=== PATIENT | female | born 1995 | race Two or more races ===

== ENCOUNTER 2024-11-30 12:54 | Outpatient (AMB) | payer MEDICAID, SELFPAY ==
[2024-11-30 13:19] VITALS: BP 132/88; PULSE 98; RESP 17; TEMP 36; O2SAT 98; BMI 38.1
--- NOTE | 2024-11-30 13:19 | AMB.OBINITIA ---
Vital Signs 11/30/24 13:19 Height 1.57 m Height Method Measured Weight 94.517 kg Weight Measurement Method Standing Scale BMI 38.1 BP 132/88 H Blood Pressure Source Automatic Cuff Blood Pressure Location Right Upper Arm Position Sitting Respiration 17 Pulse 98 Pulse Source Monitor Temp 96.8 F Temp Source Temporal Artery Scan Pulse Oximetry (%) 98 Oxygen Delivery Method Room Air Allergies/Home Meds Allergies & Medications Allergies No Known Allergies Allergy (Verified 11/30/24 13:20) Medication Reconciliation vitamins-iron fumarate 27 mg iron-folic acid 0.8 mg tablet ( Vitamin) 1 tab PO QDAY 10/15/19 [History Confirmed 11/30/24] Intake Visit Data Collection New Patient or Established: New Patient (never been to 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 1. Little interest or pleasure in doing things: not at all 2. Feeling down, depressed, or hopeless: not at all Total score: 0 PHQ-9 3. Trouble falling or staying asleep, or sleeping too much: Not at all 4. Feeling tired or having little energy: Not at all 5. Poor appetite or overeating: Not at all 6. Feeling bad about yourself - or that you are a failure or have let yourself or your family down: Not at all 7. Trouble concentrating on things, such as reading the newspaper or watching television: Not at all 8. Moving or speaking so slowly that other people could have noticed? - Or the opposite - being so fidgety or restless that you have been moving around a lot more than usual: not at all 9. Thoughts that you would be better off or of hurting yourself in some way: Not at all Total score: 0 If you checked off any problems, how difficult have these problems made it for you to do your work, take care of things at home, or get along with other people?: not difficult at all Source: Developed by Drs. Uri Phoenix, Nicole Triplett, Abdelrahman Petty and colleagues, with an educational julianna from [employer]. Social History Living Situation History Housing: MOBILE HOME Tobacco History Smoking Status: Never smoker Alcohol History Alcohol Intake: Never Domestic Abuse History Do You Feel Safe at Home: Yes History of Present Illness HPI Narrative 29 yo IUP 31w5 for OBI. lmp 04/26/25. sure dates. EDC 01/31/25. ist ob sono 07/08/24, IUP 10 week. EDC 02/03/25. no problem with . Biggest baby was 5 pound at term. at 34 week. PPROM. transfered to [place]. deneis social habit,no surgery. denies symptomA+,abs-,rpr;;nr, rub NI, HBSAG-,HIV-, GC/CT-, AFP/NIPT-, carrier screen-, 1hr gtt: 149. 3hr gtt wnl, a1: 5.1 BACKGROUND CHECK COORDINATOR: Past Medical History Past Medical History: No Hx Neurological Disorders, No Hx Breast Cancer, No Hx Cardiac Disorders, No Hx Cancer, No Hx Blood Disorders, No Hx Anemia, No Hx Gastrointestinal Disorders, No Hx Renal Disease, No Hx Diabetes Mellitus Type 1, No Hx Diabetes Mellitus Type 2, No Hx Tubal Ligation and No Hx Hysterectomy OB Initial Visit Menstrual History Menstrual reliability: approximate (month known) Flow: normal Menstrual regularity: irregular Monthly: No Age at menarche: 12 On control pills at conception: No Date of positive home test: 05/31/24 OB History : 4 Para: 2 Hx # Pregnancies: 2 Hx Total # of Abortions (Spontaneous & Elective): 1 # of Living Children: 2 Delivery History 1st : Child's name: EVE date: 11/28/09 sex: male Delivery type: vaginal weight (lbs): 2267.962 g History of depression before or after : No 2nd : Child's name: ADAM date: 10/18/19 sex: male Gestational age at delivery (weeks): 34 Delivery type: vaginal weight (lbs): 1814.369 g History of depression before or after : No Infection History & Risk Evaluation History of STDs: none HIV risk evaluation: low risk Hepatitis B risk evaluation: low risk Patient or partner has history of Genital Herpes: No Genetic Screening & History Genetic Screening/Teratology Counseling - Includes patient, baby's father, or anyone in either family with: 1. Patient's age 35 years or older as of estimated date of delivery: No 2. Thalassemia (Setswana, Kazakh, Mediterranean, or Background); MCV less than 80: No 3. Neural Tube Defect (Meningomyelocele, Spina Bifida, or Anencephaly): No 4. Congenital Heart Defect: No 5. Down Syndrome: No 6. Valentin-Sachs (Ashkenazi Jain, Cajun, Mongolian East Timorese): No 7. Lulu Disease (Ashkenazi Jain): No 8. Familial Dysautonomia (Ashkenazi Jain): No 9. Sickle Cell Disease or Trait (): No 10. Hemophilia or other blood disorders: No 11. Muscular Dystrophy: No 12. Cystic Fibrosis: No 13. [place]'s Chorea: No 14. Mental Retardation/Autism: No 15. Other inherited genetic or chromosomal disorder: No 16. Maternal Metabolic Disorder (EG,TYPE 1 Diabetes, PKU): No 17. Patient or baby's father had a child with defects not listed above: No 18. Recurrent loss or a stillbirth: No 19. Medications (including supplements, vitamins, herbs or otc drugs)/illicit/recreational drugs/alcohol since last menstrual period: No 20. Any other: No Infection History 1. Live with someone with TB or exposed to TB: No 2. Rash or viral illness since last menstrual period: No 3. Hepatitis B,C: No Other (see comments) Source: [employer] Review of Systems Review of Systems Systems Reviewed: All systems reviewed, normal except as documented Exam General Limitations: no limitations General Appearance: alert, in no apparent distress, comfortable, cooperative, healthy appearing, well developed and well groomed Head Head exam: atraumatic, normocephalic and normal inspection Neck Neck exam: Present normal inspection, full ROM and trachea midline Chest Chest inspection: Present normal inspection and symmetric chest wall rise Resp Respiratory exam: Present normal lung sounds bilaterally Card Cardiovascular exam: Present regular rate, normal rhythm and normal heart sounds Psych Psychiatric exam: Present normal affect and normal mood Office Procedures OB Clinic LOC & Office Proc's Nursing/Assessment Patient Status: Initial/New Patient OB Clinic Nursing Assessment: Medication Reconciliation, Update PMH in EMR and Vital Signs OB Clinic Coordination of Care: Complex Care and Chronic Disease 1-5, Education Complex Pt/Fam, Consent,records obtained, informed consent and 4+ Authorizations needed Special Needs: Heart tones New Patient Charge New Patient Point Assignment: [id number] 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 Clinic Administered by: Chrissy Kamara MA on 11/30/24 13:46 Dose Route Admin Location Dispensed Lot Number Expiration Date [facility] Hearing Therapist 0.5 mL IM Left Deltoid 0.5 mL [id number] 01/14/27 24145-059-21 [employer] VIS Given Date VIS Provided VIS Publication Date 11/30/24 Single Vaccine 24 Eligibility Eligibility Date Funding Source Public Non-[facility] Assessment & Plan Diagnosis / Problem List (1) High risk case management patient in third trimester: Status: Acute Plan Tdap today. Discussed labor precautions. Increase fluids. Continue vitamins and iron. Discussed diet and weight gain. Walk 40 minutes a day. Return in 2 weeks OB check Additional Plan Follow Up: 2 Weeks (obc)
== END 2024-11-30 13:31 | disposition home or self-care (01) ==
LOC: HODSOBC 12:54
PROVIDERS: Supervising Provider Advanced Practice Midwife; Visit Provider Advanced Practice Midwife
DX: O09.213 Supervision of pregnancy with history of pre-term labor, third trimester (principal); Z3A.31 31 weeks gestation of pregnancy; Z23 Encounter for immunization
CPT/HCPCS: 90471; 90715; 96372; 99204; G0463

== ENCOUNTER 2024-12-14 12:58 | Outpatient (AMB) | payer MEDICAID, SELFPAY ==
[2024-12-14 13:07] VITALS: BP 123/85; PULSE 94; RESP 17; TEMP 36.3; O2SAT 97; BMI 38.5
--- NOTE | 2024-12-14 13:07 | AMB.OBVISIT ---
Vital Signs 12/14/24 13:07 Height 1.57 m Height Method Stated Weight 94.914 kg Weight Measurement Method Standing Scale BMI 38.5 BP 123/85 H Blood Pressure Source Automatic Cuff Blood Pressure Location Right Upper Arm Position Sitting Respiration 17 Pulse 94 Pulse Source Monitor Temp 97.3 F Temp Source Temporal Artery Scan Pulse Oximetry (%) 97 Oxygen Delivery Method Room Air Allergies/Home Meds Allergies & Medications Allergies No Known Allergies Allergy (Verified 12/14/24 13:08) Medication Reconciliation vitamins-iron fumarate 27 mg iron-folic acid 0.8 mg tablet ( Vitamin) 1 tab PO QDAY 10/15/19 [History Confirmed 12/14/24] Intake Visit Data Collection New Patient or Established: Established Patient (seen at [facility] within 3 years) Reason for Visit:: OBC 33W Seen by Clinical Staff ONLY (RN/MA): No Rn Labor And Delivery Required: No Do You Feel Safe at Home: Yes Authorities Contacted: N/A PCP or OBGYN visit in last 3 months: Yes Hx Now: Yes Are you currently on any form of Control: No Pain Present Currently: No Pain Scale Used: Darden-Hopper/Numerical Pain scale:: 0 Smoking Status Smoking Status: Never smoker Questionnaires Covid-19 Vaccine Questionnaire Has patient been vacinated for Covid-19 Have you been vacinated for Covid-19: No PHQ-9 PHQ-2 Over the last 2 weeks, how often have you been bothered by any of the following problems? 1. Little interest or pleasure in doing things: not at all 2. Feeling down, depressed, or hopeless: not at all Total score: 0 PHQ-9 3. Trouble falling or staying asleep, or sleeping too much: Not at all 4. Feeling tired or having little energy: Not at all 5. Poor appetite or overeating: Not at all 6. Feeling bad about yourself - or that you are a failure or have let yourself or your family down: Not at all 7. Trouble concentrating on things, such as reading the newspaper or watching television: Not at all 8. Moving or speaking so slowly that other people could have noticed? - Or the opposite - being so fidgety or restless that you have been moving around a lot more than usual: not at all 9. Thoughts that you would be better off or of hurting yourself in some way: Not at all Total score: 0 If you checked off any problems, how difficult have these problems made it for you to do your work, take care of things at home, or get along with other people?: not difficult at all Source: Developed by Drs. Uri Phoenix, Nicole Triplett, Abdelrahman Petty and colleagues, with an educational julianna from [employer] Depression screen completed yes Social History Living Situation History Marital Status: Lives With: Family Housing: MOBILE HOME Tobacco History Smoking Status: Never smoker Second Hand Smoke Exposure: No Alcohol History Alcohol Intake: Never Domestic Abuse History Do You Feel Safe at Home: Yes ENVIRONMENT FRIENDLY LANDSCAPE DESIGNER: Past Medical History Past Medical History: No Hx Neurological Disorders, No Hx Breast Cancer, No Hx Cardiac Disorders, No Hx Cancer, No Hx Blood Disorders, No Hx Anemia, No Hx Gastrointestinal Disorders, No Hx Renal Disease, No Hx Diabetes Mellitus Type 1, No Hx Diabetes Mellitus Type 2, No Hx Tubal Ligation and No Hx Hysterectomy Care OB Visit Log OB Flowsheet Initial Weight: Not Recorded Date <del>?</del> EGA Weight BP Alb Glu CTX Pres Fundal ht FHR Mov Dilation Station Effacement Hx Notes Visit Note 11/30/24 <del>?</del> 31w 1d 94.517 kg 132/88 absent unknown 30 145 29 yo for OBI. Patient is been followed Dr. Merlos's office for the first part of the . Her last. Was April 26, 2024. Estimated due date by LMP is January 31, 2025. Patient had a 10-week ultrasound in June to confirm dates and then she also had a 26-week ultrasound that also confirm dates. Denies social habits. Denies surgery. Denies chronic illness. Patient with good movement. And she denies any labor symptoms. Reports good movement. TDAP today, review labs and records, discuss ptl precaution. continue gdm diet,discuss weight. hydrate, continue pnv. rtc 2 week obc 12/14/24 <del>?</del> 33w 1d 94.914 kg 123/85 absent cephalic 32 145 active Reports movement. Reports baby is very active. Denies contractions. Denies leaking. Denies bleeding. OB sono for growth and OB. Discussed labor precautions. Discussed kick count twice a day. Increase fluids. Continue vitamins. Discussed danger signs and symptoms and ER precautions KIERSTEN Calculator Estimated Delivery Date Method Current WG Current Estimate 01/31/25 LMP (Certain) 33w 1d Other Estimates 02/03/25 Ultrasound #1 32w 5d 01/27/25 Ultrasound #2 33w 5d Notes Visit Date: 11/30/24 Last Updated by: Bing Crockett CNM 29 yo . LMP 04/26/25. EDC 01/31/25. 07/08/24 IUP 10 week. EDC 02/03/25. OB panel: A+,abs-, rpr;;nr, rub NI, hbsag-,hiv-, HC-, GC/CT-, 1hr gtt: 149, 3 hr gtt wnl. AFP/NIPT/Carrier screen- Office Procedures OB Clinic LOC & Office Proc's Nursing/Assessment Patient Status: Established Patient OB Clinic Nursing Assessment: Medication Reconciliation, Update PMH in EMR and Vital Signs OB Clinic Coordination of Care: Complex Care and Chronic Disease 1-5, Consent,records obtained, informed consent, Education Simp Pt/Fam and Staff clarify orders Special Needs: Heart tones Established Patient Charge Established Patient Point Assignment: 115 Established Patient Point Charge: EP Level 3 (80-115) Assessment & Plan Diagnosis / Problem List (1) High risk case management patient in third trimester: Status: Acute (2) Uterine size-date discrepancy in second trimester: Status: Acute Plan Sono for growth. Continue vitamins. Discussed labor precautions. kick count twice a day. Increase fluids and return in 2 weeks OB check. Discussed diet and weight gain Additional Plan Follow Up: 2 Weeks (obc)
== END 2024-12-14 13:35 | disposition home or self-care (01) ==
LOC: HODSOBC 12:58
PROVIDERS: Supervising Provider Advanced Practice Midwife; Visit Provider Advanced Practice Midwife
DX: O09.893 Supervision of other high risk pregnancies, third trimester (principal); O26.843 Uterine size-date discrepancy, third trimester; Z3A.33 33 weeks gestation of pregnancy
CPT/HCPCS: 99213; G0463

== ENCOUNTER → 2025-01-06 | Outpatient (CLI) | payer MEDICAID, SELFPAY ==
--- NOTE | 2025-01-06 11:15 | XR_ITS ---
Examination: Complete OB ultrasound greater than 14 weeks Date and time of exam: January 06, 2025 1101 hours INDICATIONS: Diagnosis size dates discrepancy Findings: Viable intrauterine single fetus with single amniotic sac presentation cephalic spine maternal left Cardiac motion 143 BPM Placenta right lateral posterior grade 2 Umbilical cord insertion seen Amniotic fluid index 9.9 cm The technologist describes right hydronephrosis which is not well-demonstrated on the images Cervix 3.4 cm Ovaries obscured by bowel gas. Composite estimated gestational age based on BPD, head circumference, abdominal circumference, femur length is 36 weeks 0 days Estimated weight 2699.7 g. Survey of intracranial anatomy, spinal anatomy, abdominal anatomy, four-chamber heart performed with no abnormalities identified. Impression: Viable intrauterine gestation cephalic presentation Estimated gestational age 36 weeks 0 days.
== END | disposition home or self-care (01) ==
PROVIDERS: Referring Provider Advanced Practice Midwife; Visit Provider Advanced Practice Midwife
DX: O26.842 Uterine size-date discrepancy, second trimester (principal); Z3A.36 36 weeks gestation of pregnancy
CPT/HCPCS: 76805

== ENCOUNTER 2025-01-11 13:56 | Outpatient (AMB) | payer MEDICAID, SELFPAY ==
[2025-01-11 14:19] VITALS: BP 127/87; PULSE 92; RESP 18; TEMP 36.2; O2SAT 97; BMI 40.1
--- NOTE | 2025-01-11 14:19 | AMB.OBVISIT ---
Vital Signs 01/11/25 14:19 Height 1.57 m Height Method Stated Weight 98.883 kg Weight Measurement Method Standing Scale BMI 40.1 BP 127/87 H Blood Pressure Source Automatic Cuff Blood Pressure Location Left Upper Arm Position Sitting Respiration 18 Pulse 92 Pulse Source Monitor Temp 97.1 F Temp Source Oral Pulse Oximetry (%) 97 Oxygen Delivery Method Room Air Allergies/Home Meds Allergies & Medications Allergies No Known Allergies Allergy (Verified 01/11/25 14:26) Medication Reconciliation vitamins-iron fumarate 27 mg iron-folic acid 0.8 mg tablet ( Vitamin) 1 tab PO QDAY 10/15/19 [History Confirmed 01/11/25] vitamin-ferrous fumarate 28 mg iron-folic acid 800 mcg tablet ( Vitamins with Minerals) 1 tab PO QDAY #60 tabs 01/03/25 [Rx Confirmed 01/11/25] Intake Visit Data Collection New Patient or Established: Established Patient (seen at [facility] within 3 years) Reason for Visit:: CARE Seen by Clinical Staff ONLY (RN/MA): No 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 1. Little interest or pleasure in doing things: not at all 2. Feeling down, depressed, or hopeless: not at all Total score: 0 PHQ-9 3. Trouble falling or staying asleep, or sleeping too much: Not at all 4. Feeling tired or having little energy: Not at all 5. Poor appetite or overeating: Not at all 6. Feeling bad about yourself - or that you are a failure or have let yourself or your family down: Not at all 7. Trouble concentrating on things, such as reading the newspaper or watching television: Not at all 8. Moving or speaking so slowly that other people could have noticed? - Or the opposite - being so fidgety or restless that you have been moving around a lot more than usual: not at all 9. Thoughts that you would be better off or of hurting yourself in some way: Not at all Total score: 0 Source: Developed by Drs. Uri Phoenix, Nicole Triplett, Abdelrahman Petty and colleagues, with an educational julianna from [employer]. Depression screen completed yes Social History Living Situation History Lives With: Family Housing: MOBILE HOME Tobacco History Smoking Status: Never smoker Second Hand Smoke Exposure: No Alcohol History Alcohol Intake: Never Domestic Abuse History Do You Feel Safe at Home: Yes ADVERTISING ACCOUNT REPRESENTATIVE: Past Medical History Past Medical History: No Hx Neurological Disorders, No Hx Breast Cancer, No Hx Cardiac Disorders, No Hx Cancer, No Hx Blood Disorders, No Hx Anemia, No Hx Gastrointestinal Disorders, No Hx Renal Disease, No Hx Diabetes Mellitus Type 1, No Hx Diabetes Mellitus Type 2, No Hx Tubal Ligation and No Hx Hysterectomy Care OB Visit Log OB Flowsheet Initial Weight: Not Recorded Date <del>?</del> EGA Weight BP Alb Glu CTX Pres Fundal ht FHR Mov Dilation Station Effacement Hx Notes Visit Note 11/30/24 <del>?</del> 31w 1d 94.517 kg 132/88 absent unknown 30 145 29 yo for OBI. Patient is been followed Dr. Merlos's office for the first part of the . Her last. Was April 26, 2024. Estimated due date by LMP is January 31, 2025. Patient had a 10-week ultrasound in June to confirm dates and then she also had a 26-week ultrasound that also confirm dates. Denies social habits. Denies surgery. Denies chronic illness. Patient with good movement. And she denies any labor symptoms. Reports good movement. TDAP today, review labs and records, discuss ptl precaution. continue gdm diet,discuss weight. hydrate, continue pnv. rtc 2 week obc 12/14/24 <del>?</del> 33w 1d 94.914 kg 123/85 absent cephalic 32 145 active Reports movement. Reports baby is very active. Denies contractions. Denies leaking. Denies bleeding. OB sono for growth and OB. Discussed labor precautions. Discussed kick count twice a day. Increase fluids. Continue vitamins. Discussed danger signs and symptoms and ER precautions 01/03/25 <del>?</del> 36w 0d 97.749 kg 127/85 absent cephalic 36 145 active Reports good movement. Increased pressure and cramps. Denies leaking, denies bleeding GBS today. Patient has growth sono January 04. Discussed labor precautions. Discussed kick count. Danger signs symptoms. Return a week OB check 01/11/25 <del>?</del> 37w 1d 98.883 kg 127/87 absent cephalic 37 140 active Reports good movement. Denies leaking. Denies bleeding. Denies contractions. Occasional Kulwant Hartley and pressure noted Discussed GBS is negative. I reviewed growth sono with patient. Discussed labor precautions and kick counts twice a day. Discussed ER precautions and return a week OB check KIERSTEN Calculator Estimated Delivery Date Method Current WG Current Estimate 01/31/25 LMP (Certain) 37w 1d Other Estimates 02/03/25 Ultrasound #1 36w 5d 01/27/25 Ultrasound #2 37w 5d Notes Visit Date: 01/11/25 Last Updated by: Bing Crockett CNM GBS- Visit Date: 11/30/24 Last Updated by: Bing Crockett CNM 29 yo . LMP 04/26/25. EDC 01/31/25. 07/08/24 IUP 10 week. EDC 02/03/25. OB panel: A+,abs-, rpr;;nr, rub NI, hbsag-,hiv-, HC-, GC/CT-, 1hr gtt: 149, 3 hr gtt wnl. AFP/NIPT/Carrier screen- Office Procedures OB Clinic LOC & Office Proc's Nursing/Assessment Patient Status: Established Patient OB Clinic Nursing Assessment: Medication Reconciliation, Update PMH in EMR and Vital Signs OB Clinic Coordination of Care: Complex Care and Chronic Disease 1-5, Consent,records obtained, informed consent, Education Simp Pt/Fam, 1 Ins Authorization, Lab and Imaging orders, Results/Orders obtained and Staff clarify orders Special Needs: Heart tones Established Patient Charge Established Patient Point Assignment: 150 Established Patient Point Charge: EP Level 4 (120-155) Assessment & Plan Diagnosis / Problem List (1) Normal in multigravida in third trimester: Status: Acute Plan Discussed labor precautions. Discussed kick counts twice a day. Reviewed growth sono with patient and GBS. Continue prenatals return a week OB check Additional Plan Follow Up: 1 Week (obc)
== END 2025-01-11 15:23 | disposition home or self-care (01) ==
LOC: HODSOBC 13:56
PROVIDERS: Supervising Provider Advanced Practice Midwife; Visit Provider Advanced Practice Midwife
DX: Z34.83 Encounter for supervision of other normal pregnancy, third trimester (principal); Z3A.37 37 weeks gestation of pregnancy
CPT/HCPCS: 99214; G0463

== ENCOUNTER 2025-01-18 15:26 | Outpatient (AMB) | payer MEDICAID, SELFPAY ==
[2025-01-18 15:49] VITALS: BP 134/82; PULSE 97; RESP 18; TEMP 35.9; O2SAT 97; BMI 40.4
--- NOTE | 2025-01-18 15:49 | OBCLNT_ITS ---
Vital Signs 01/18/25 15:49 Height 1.57 m Height Method Stated Weight 99.564 kg Weight Measurement Method Standing Scale BMI 40.4 BP 134/82 H Blood Pressure Source Automatic Cuff Blood Pressure Location Left Upper Arm Position Sitting Respiration 18 Pulse 97 Pulse Source Monitor Temp 96.6 F L Temp Source Oral Pulse Oximetry (%) 97 Oxygen Delivery Method Room Air Allergies/Home Meds Allergies & Medications Allergies No Known Allergies Allergy (Verified 01/18/25 15:50) Medication Reconciliation vitamins-iron fumarate 27 mg iron-folic acid 0.8 mg tablet ( Vitamin) 1 tab PO QDAY 10/15/19 [History Confirmed 01/18/25] vitamin-ferrous fumarate 28 mg iron-folic acid 800 mcg tablet ( Vitamins with Minerals) 1 tab PO QDAY #60 tabs 01/03/25 [Rx Confirmed 01/18/25] Intake Visit Data Collection New Patient or Established: Established Patient (seen at [facility] within 3 years) Reason for Visit:: CARE Seen by Clinical Staff ONLY (RN/MA): No Lug Loader Required: No Do You Feel Safe at Home: Yes Authorities Contacted: N/A PCP or OBGYN visit in last 3 months: Yes Hx Now: Yes Are you currently on any form of Control: No Pain Present Currently: No Pain Scale Used: Darden-Hopper/Numerical Pain scale:: 0 Smoking Status Smoking Status: Never smoker Questionnaires Covid-19 Vaccine Questionnaire Has patient been vacinated for Covid-19 Have you been vacinated for Covid-19: Yes PHQ-9 PHQ-2 Over the last 2 weeks, how often have you been bothered by any of the following problems? 1. Little interest or pleasure in doing things: not at all 2. Feeling down, depressed, or hopeless: not at all Total score: 0 PHQ-9 3. Trouble falling or staying asleep, or sleeping too much: Not at all 4. Feeling tired or having little energy: Not at all 5. Poor appetite or overeating: Not at all 6. Feeling bad about yourself - or that you are a failure or have let yourself or your family down: Not at all 7. Trouble concentrating on things, such as reading the newspaper or watching television: Not at all 8. Moving or speaking so slowly that other people could have noticed? - Or the opposite - being so fidgety or restless that you have been moving around a lot more than usual: not at all 9. Thoughts that you would be better off or of hurting yourself in some way: Not at all Total score: 0 Source: Developed by Drs. Uri Phoenix, Nicole Triplett, Abdelrahman Petty and colleagues, with an educational julianna from [employer]. 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: Past Medical History Past Medical History: No Hx Neurological Disorders, No Hx Breast Cancer, No Hx Cardiac Disorders, No Hx Cancer, No Hx Blood Disorders, No Hx Anemia, No Hx Gastrointestinal Disorders, No Hx Renal Disease, No Hx Diabetes Mellitus Type 1, No Hx Diabetes Mellitus Type 2, No Hx Tubal Ligation and No Hx Hysterectomy Care OB Visit Log OB Flowsheet Initial Weight: Not Recorded Date -?-?-?-?-?-?-?-?-?--?-?-?- EGA Weight BP Alb Glu CTX Pres Fundal ht FHR Mov Dilation Station Effacement Hx Notes Visit Note 11/30/24 -?-?-?-?-?-?-?-?-?-?-?-?- 31w 1d 94.517 kg 132/88 absent unknown 30 145 29 yo for OBI. Patient is been followed Dr. Merlos's office for the first part of the . Her last. Was April 26, 2024. Estimated due date by LMP is January 31, 2025. Patient had a 10-week ultrasound in June to confirm dates and then she also had a 26-week ultrasound that also confirm dates. Denies social habits. Denies surgery. Denies chronic illness. Patient with good movement. And she denies any labor symptoms. Reports good movement. TDAP today, review labs and records, discuss ptl precaution. continue gdm diet,discuss weight. hydrate, continue pnv. rtc 2 week obc 12/14/24 -?-?-?-?-?-?-?-?-?-?-?-?- 33w 1d 94.914 kg 123/85 absent cephalic 32 145 active Reports movement. Reports baby is very active. Denies contractions. Denies leaking. Denies bleeding. OB sono for [facility] and OB. Discussed labor precautions. Discussed kick count twice a day. Increase fluids. Continue vitamins. Discussed danger signs and symptoms and ER precautions 01/03/25 -?-?-?-?-?-?-?-?-?-?-?-?- 36w 0d 97.749 kg 127/85 absent cephalic 36 145 active Reports good movement. Increased pressure and cramps. Denies leaking, denies bleeding GBS today. Patient has growth sono January 04. Discussed labor precautions. Discussed kick count. Danger signs symptoms. Return a week OB check 01/11/25 -?-?-?-?-?-?-?-?-?-?-?-?- 37w 1d 98.883 kg 127/87 absent cephalic 37 140 active Reports good movement. Denies leaking. Denies bleeding. Denies contractions. Occasional [place] and pressure noted Discussed GBS is negative. I reviewed growth sono with patient. Discussed labor precautions and kick counts twice a day. Discussed ER precautions and return a week OB check 01/18/25 -?-?-?-?-?-?-?--?-?-?-?-?- 38w 1d 99.564 kg 134/82 absent cephalic 38 140 active 1 -3 50 Fetus active. Denies any signs or symptoms of labor. Denies leaking, denies bleeding. No complaints Discussed labor precautions. Kick count twice a day. Discussed danger danger signs and symptoms. ER precautions. Return in a week OB check KIERSTEN Calculator Estimated Delivery Date Method Current WG Current Estimate 01/31/25 LMP (Certain) 38w 1d Other Estimates 02/03/25 Ultrasound #1 37w 5d 01/27/25 Ultrasound #2 38w 5d Notes Visit Date: 01/11/25 Last Updated by: Bing Crockett CNM GBS- Visit Date: 11/30/24 Last Updated by: Bing Crockett CNM 29 yo . LMP 04/26/25. EDC 01/31/25. 07/08/24 IUP 10 week. EDC 02/03/25. OB panel: A+,abs-, rpr;;nr, rub NI, hbsag-,hiv-, HC-, GC/CT-, 1hr gtt: 149, 3 hr gtt wnl. AFP/NIPT/Carrier screen- Office Procedures OB Clinic LOC & Office Proc's Nursing/Assessment Patient Status: Established Patient OB Clinic Nursing Assessment: Medication Reconciliation, Update PMH in EMR and Vital Signs OB Clinic Coordination of Care: Complex Care and Chronic Disease 1-5, Consent,records obtained, informed consent, Education Simp Pt/Fam, Lab and Imag ing orders, Results/Orders obtained and Staff clarify orders Special Needs: Heart tones Established Patient Charge Established Patient Point Assignment: 135 Established Patient Point Charge: EP Level 4 (120-155) Assessment & Plan Diagnosis / Problem List (1) Normal in multigravida in third trimester: Status: Acute Plan Discussed labor precautions. Discussed kick count twice a day. Discussed ER precautions and danger signs symptoms. Increase fluids. Continue prenatals. Return in a week OB check Additional Plan Follow Up: 1 Week (obc)
== END 2025-01-18 16:12 | disposition home or self-care (01) ==
LOC: HODSOBC 15:26
PROVIDERS: Supervising Provider Advanced Practice Midwife; Visit Provider Advanced Practice Midwife
DX: Z34.83 Encounter for supervision of other normal pregnancy, third trimester (principal); Z3A.38 38 weeks gestation of pregnancy
CPT/HCPCS: 99214; G0463

== ENCOUNTER 2025-01-25 12:55 | Outpatient (AMB) | payer MEDICAID, SELFPAY ==
--- NOTE | 2025-01-25 13:04 | OBCLNT_ITS ---
Vital Signs 01/25/25 13:07 Height 1.57 m Height Method Stated Weight 101.831 kg Weight Measurement Method Standing Scale BMI 41.1 BP 143/92 H Blood Pressure Source Automatic Cuff Blood Pressure Location Left Upper Arm Position Sitting Respiration 18 Pulse 99 Pulse Source Monitor Temp 97.4 F Temp Source Oral Pulse Oximetry (%) 98 Oxygen Delivery Method Room Air Allergies/Home Meds Allergies & Medications Allergies No Known Allergies Allergy (Verified 01/25/25 13:08) Medication Reconciliation vitamins-iron fumarate 27 mg iron-folic acid 0.8 mg tablet ( Vitamin) 1 tab PO QDAY 10/15/19 [History Confirmed 01/25/25] vitamin-ferrous fumarate 28 mg iron-folic acid 800 mcg tablet ( Vitamins with Minerals) 1 tab PO QDAY #60 tabs 01/03/25 [Rx Confirmed 01/25/25] Intake Visit Data Collection New Patient or Established: Established Patient (seen at [facility] within 3 years) Reason for Visit:: Seen by Clinical Staff ONLY (RN/MA): No Owner Manager Required: No Do You Feel Safe at Home: Yes Authorities Contacted: N/A PCP or OBGYN visit in last 3 months: Yes Hx Now: Yes Are you currently on any form of Control: No Pain Present Currently: No Pain Scale Used: Darden-Hopper/Numerical Pain scale:: 0 Smoking Status Smoking Status: Never smoker Questionnaires Covid-19 Vaccine Questionnaire Has patient been vacinated for Covid-19 Have you been vacinated for Covid-19: Yes PHQ-9 PHQ-2 Over the last 2 weeks, how often have you been bothered by any of the following problems? 1. Little interest or pleasure in doing things: not at all 2. Feeling down, depressed, or hopeless: not at all Total score: 0 PHQ-9 3. Trouble falling or staying asleep, or sleeping too much: Not at all 4. Feeling tired or having little energy: Not at all 5. Poor appetite or overeating: Not at all 6. Feeling bad about yourself - or that you are a failure or have let yourself or your family down: Not at all 7. Trouble concentrating on things, such as reading the newspaper or watching television: Not at all 8. Moving or speaking so slowly that other people could have noticed? - Or the opposite - being so fidgety or restless that you have been moving around a lot more than usual: not at all 9. Thoughts that you would be better off or of hurting yourself in some way: Not at all Total score: 0 Source: Developed by Drs. Uri Phoenix, Nicole Triplett, Abdelrahman Petty and colleagues, with an educational julianna from [employer]. 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 Medical History Past Medical History: No Hx Neurological Disorders, No Hx Breast Cancer, No Hx Cardiac Disorders, No Hx Cancer, No Hx Blood Disorders, No Hx Anemia, No Hx Gastrointestinal Disorders, No Hx Renal Disease, No Hx Diabetes Mellitus Type 1, No Hx Diabetes Mellitus Type 2, No Hx Tubal Ligation and No Hx Hysterectomy Care OB Visit Log OB Flowsheet Initial Weight: Not Recorded Date -?-?-?-?-?-?-?-?-?-?-?-?- EGA Weight BP Alb Glu CTX Pres Fundal ht FHR Mov Dilation Station Effa cement Hx Notes Visit Note 11/30/24 -?-?-?-?-?-?-?-?-?-?-?-?- 31w 1d 94.517 kg 132/88 absent unknown 30 145 29 yo for OBI. Patient is been followed Dr. Merlos's office for the first part of the . Her last. Was April 26, 2024. Estimated due date by LMP is January 31, 2025. Patient had a 10-week ultrasound in June to confirm dates and then she also had a 26-week ultrasound that also confirm dates. Denies social habits. Denies surgery. Denies chronic illness. Patient with good movement. And she denies any labor symptoms. Reports good movement. TDAP today, review labs and records, discuss ptl precaution. continue gdm diet,discuss weight. hydrate, continue pnv. rtc 2 week obc 12/14/24 -?-?-?-?-?-?-?-?-?-?-?-?- 33w 1d 94.914 kg 123/85 absent cephalic 32 145 active Reports movement. Reports baby is very active. Denies contractions. Denies leaking. Denies bleeding. OB sono for [facility] and OB. Discussed labor precautions. Discussed kick count twice a day. Increase fluids. Continue vitamins. Discussed danger signs and symptoms and ER precautions 01/03/25 -?-?-?-?-?-?-?-?-?-?-?-?- 36w 0d 97.749 kg 127/85 absent cephalic 36 145 active Reports good movement. Increased pressure and cramps. Denies leaking, denies bleeding GBS today. Patient has growth sono January 04. Discussed labor precautions. Discussed kick count. Danger signs symptoms. Return a week OB check 01/11/25 -?-?-?-?-?-?-?-?-?-?-?-?- 37w 1d 98.883 kg 127/87 absent cephalic 37 140 active Reports good movement. Denies leaking. Denies bleeding. Denies contractions. Occasional [place] and pressure noted Discussed GBS is negative. I reviewed growth sono with patient. Discussed labor precautions and kick counts twice a day. Discussed ER precautions and return a week OB check 01/18/25 -?-?-?-?-?-?-?-?-?-?-?-?- 38w 1d 99.564 kg 134/82 absent cephalic 38 140 active 1 -3 50 Fetus active. Denies any signs or symptoms of labor. Denies leaking, denies bleeding. No complaints Discussed labor precautions. Kick count twice a day. Discussed danger danger signs and symptoms. ER precautions. Return in a week OB check 01/25/25 -?-?-?-?-?-?-?-?--?-?-?-?- 39w 1d 101.831 kg 143/92 absent cephalic 39 14 5 active 1 -3 50 Fetus active. Occasional contraction. No complaints of leaking, no bleeding, Fetus active. Occasional co ntraction. No complaints of leaking, no bleeding, REPEAT bp: 132/84, ua: +1 PROTEIN Discussed PIH signs and symptoms. Discussed ER precautions parameters. Discussed kick count labor precautions. Patient to labor and delivery for PIH eval and return a week OB check will consider induction of labor KIERSTEN Calculator Estimated Delivery Date Method Current WG Current Estimate 01/31/25 LMP (Certain) 39w 1d Other Estimates 02/03/25 Ultrasound #1 38w 5d 01/27/25 Ultrasound #2 39w 5d Notes Visit Date: 01/11/25 Last Updated by: Bing Crockett CNM GBS- Visit Date: 11/30/24 Last Updated by: Bing Crocktet CNM 29 yo . LMP 04/26/25. EDC 01/31/25. 07/08/24 IUP 10 week. EDC 02/03/25. OB panel: A+,abs-, rpr;;nr, rub NI, hbsag-,hiv-, HC-, GC/CT-, 1hr gtt: 149, 3 hr gtt wnl. AFP/NIPT/Carrier screen- Office Procedures OB Clinic LOC & Office Proc's Nursing/Assessment Patient Status: Established Patient OB Clinic Nursing Assessment: Medication Reconciliation, Update PMH in EMR and Vital Signs OB Clinic Coordination of Care: Complex Care and Chronic Disease 1-5, Consent,records obtained, informed consent, Education Simp Pt/Fam, 1 Ins Authorization, Lab and Imaging orders, Results/Orders obtained and Staff clarify orders Special Needs: Heart tones Established Patient Charge Established Patient Point Assignment: 150 Established Patient Point Charge: EP Level 4 (120-155) Assessment & Plan Diagnosis / Problem List (1) Normal in multigravida in third trimester: Status: Acute Plan To labor and delivery for PIH workup. NST today. Discussed labor precautions and kick count. Reviewed PIH precautions with patient kick count twice a day. Return in a week for OB check Additional Plan Follow Up: 1 Week (OBC)
[2025-01-25 13:07] VITALS: BP 143/92; PULSE 99; RESP 18; TEMP 36.3; O2SAT 98; BMI 41.1
== END 2025-01-25 14:11 | disposition home or self-care (01) ==
LOC: HODSOBC 12:55
PROVIDERS: Supervising Provider Advanced Practice Midwife; Visit Provider Advanced Practice Midwife
DX: Z34.83 Encounter for supervision of other normal pregnancy, third trimester (principal); Z3A.39 39 weeks gestation of pregnancy
CPT/HCPCS: 99214; G0463

== ENCOUNTER 2025-01-25 16:43 | Observation (INO) | payer MEDICAID, SELFPAY ==
[2025-01-25] VITALS (32 sets, daily range): BP systolic 127–133; BP diastolic 69–83; PULSE 80–112; RESP 16–98; TEMP 37; O2SAT 96–98; BMI 41.2
--- NOTE | 2025-01-25 16:57 | XR_ITS ---
Examination: Complete OB ultrasound greater than 14 weeks Date and time of exam: January obtained on the thousand 25, 1706 hrs. Indications: -induced hypertension today. Findings: Viable intrauterine single fetus with single amniotic sac presentation cephalic. Cardiac motion 140 BPM. Placenta posterior grade 2. Clinical: Insertion seen. Amniotic fluid index 7.4 cm. spine maternal left. Cervix 3.8 cm. Ovaries obscured by bowel gas.. Composite estimated gestational age based on BPD, head circumference, abdominal circumference, femur length is 37 weeks 2 days. Estimated weight 3254 g.. Survey of intracranial anatomy, spinal anatomy, abdominal anatomy, four-chamber heart performed with no abnormalities identified. Impression: Viable intrauterine gestation cephalic presentation..
[2025-01-25 17:27] LABS: Basophils # (Auto) 0.0 Thou/mm3 (0.0-0.2); Basophils % (Auto) 0 % (0-2.5); Eosinophils # (Auto) 0.1 Thou/mm3 (0.0-0.5); Eosinophils % (Auto) 1 % (0-10); Hematocrit 39.6 % (36.0-46.0); Hemoglobin 13.6 g/dL (12.0-16.0); Immature Granulocytes Auto 0.09 Thou/mm3 (0.00-0.00); Lymphocytes # (Auto) 1.8 Thou/mm3 (1.0-4.8); Lymphocytes % (Auto) 16 % (10-50); Mean Corpuscular HGB Conc 34.3 g/dl (31.0-37.0); Mean Corpuscular Hemoglobin 28.7 pg (25.0-35.0); Mean Corpuscular Volume 84 fL (80-100); Monocytes # (Auto) 0.5 Thou/mm3 (0.0-0.8); Monocytes % (Auto) 5 % (0-12); Neutrophils # (Auto) 8.5 Thou/mm3 (1.8-7.7); Neutrophils % (Auto) 77 % (37-80); Nucleated Red Blood Cell # 0.00 Thou/mm3 (0.00-0.00); Nucleated Red Blood Cell % 0 /100 WBC (0); Platelet Count 240 Thou/mm3 (140-440); RDW Standard Deviation 47.0 fL (36.4-46.3); Red Blood Count 4.74 Miln/mm3 (4.00-5.20); White Blood Count 11.0 Thou/mm3 (3.6-11.0)
[2025-01-25 17:43] LABS: Alanine Aminotransferase 17 U/L (10-49); Albumin, Serum 3.5 gm/dL (3.5-5.0); Albumin/Globulin Ratio 1.6 (1.2-2.2); Alkaline Phosphatase 179 U/L (46-116); Anion Gap 12 (7-16); Aspartate Amino Transferase 15 U/L (0-34); BUN/Creatinine Ratio 10 Ratio (12-20); Bilirubin,Total 0.2 mg/dL (0.3-1.2); Blood Urea Nitrogen 6 mg/dL (9-23); Calcium 9.1 mg/dL (8.3-10.6); Calcium (Corrected) 9.5 mg/dL (8.5-10.1); Carbon Dioxide 19.6 mMol/L (20.0-31.0); Chloride 108 mMol/L (98-107); Creatinine (Component) 0.6 mg/dL (0.6-1.3); Estimated Creatinine Clearance 153.6 mL/min (>60); Globulin 2.2 gm/dL (2.3-3.5); Glucose 150 mg/dL (74-106); LDH (Lactate Dehydrogenase) 166 U/L (120-246); Osmolality,Calculated 280 (275-295); Potassium 3.5 mMol/L (3.4-5.1); Sodium 140 mMol/L (136-145); Total Protein 5.7 gm/dL (5.7-8.2); eGFR > 60 See Note
[2025-01-25 18:03] LABS: Collection Type, Urine Clean Catch
[2025-01-25 18:17] LABS: Bacteria,Urine Rare; Bilirubin,Urine Negative (Negative); Blood,Urine Negative (Negative); Calcium Oxalate Crystals,Urine 1+; Clarity,Urine Turbid (Clear/Hazy); Color,Urine Yellow (Lt Yel-Yel); Glucose, Urine Negative (Negative); Ketones,Urine Negative (Negative); Leukocyte Esterase,Urine Positive (Negative); Nitrite,Urine Negative (Negative); PH,Urine 6.5 (5.0-7.0); Protein,Urine Trace (Neg - Trace); RBC,Urine 4 /hpf (0-3); Specific Gravity,Urine 1.019 (1.001-1.035); Squamous Epithelial Cell,Urine 26 /hpf (0-5); Urobilinogen,Urine Negative mg/dL (0.0-1.0); WBC,Urine 11 /hpf (0-5)
[2025-01-25 18:31] LABS: Fibrinogen 584 mg/dL (175-375); INR 0.9 (0.9-1.3); Partial Thromboplastin Time 25.7 Seconds (22.0-36.0); Prothrombin Time 9.7 Seconds (9.0-12.2)
[2025-01-25 19:00] LABS: Uric Acid 5.9 mg/dL (3.1-7.8)
== END 2025-01-25 19:29 | disposition home or self-care (01) ==
PROVIDERS: Admitting Provider Advanced Practice Midwife; Visit Provider Advanced Practice Midwife
DX: O26.893 Other specified pregnancy related conditions, third trimester (principal); Z3A.37 37 weeks gestation of pregnancy; R03.0 Elevated blood-pressure reading, without diagnosis of hypertension
CPT/HCPCS: 36415; 59025; 59899; 76805; 80053; 81001; 83615; 84550; 85025; 85384; 85610; 85730

== ENCOUNTER 2025-01-31 04:40 | Inpatient (IN) | payer MEDICAID, SELFPAY ==
[2025-01-31] VITALS (148 sets, daily range): BP systolic 113–192; BP diastolic 62–119; PULSE 67–115; RESP 16–99; TEMP 36.8–37.1; O2SAT 83–99; BMI 41.7
--- NOTE | 2025-01-31 06:18 | PD.LDPN ---
Documentation for date of: 01/31/25 OB Labor Progress Note Pelvic Exam Amniotic membrane status: Intact Assessment and Plan Comments: RN notifiied me of elevated bp's Skye is a patient of REHANA Crockett's currently being admitted for labor. She was noted at her visit on 01/25 to have mild range bp and PIH labs were done which were normal. Today on presentation she has had a mix of severe and mild range bp's- currently in pain related to active labor and plans for epidural. IV has been placed and PIH labs already drawn. Since last two bp's are 160 and 170 systolic, I requested for labetalol 20mg IV x1 to be given. And for RN to call me if she has another two severe range bp's after that. Patient is otherwise asymptomatic. No LEE/vision changes/RUQ pain. Will continue to follow along with bp management as REHANA Crockett manages labor. Joanne Hernandez MD
[2025-01-31] MEDS: LABETALOL INJ 5 MG/ML VIAL 20 ML 20 MG IVP (06:22)
[2025-01-31] MEDS: fentaNYL CIT INJ 50 mCg/ML AMP 2ML 100 MCG IVP (06:33)
[2025-01-31 06:34] LABS: Collection Type, Urine Clean Catch
[2025-01-31 06:38] LABS: Basophils # (Auto) 0.0 Thou/mm3 (0.0-0.2); Basophils % (Auto) 0 % (0-2.5); Eosinophils # (Auto) 0.2 Thou/mm3 (0.0-0.5); Eosinophils % (Auto) 2 % (0-10); Hematocrit 38.6 % (36.0-46.0); Hemoglobin 13.2 g/dL (12.0-16.0); Immature Granulocytes Auto 0.08 Thou/mm3 (0.00-0.00); Lymphocytes # (Auto) 1.8 Thou/mm3 (1.0-4.8); Lymphocytes % (Auto) 18 % (10-50); Mean Corpuscular HGB Conc 34.2 g/dl (31.0-37.0); Mean Corpuscular Hemoglobin 28.7 pg (25.0-35.0); Mean Corpuscular Volume 84 fL (80-100); Monocytes # (Auto) 0.7 Thou/mm3 (0.0-0.8); Monocytes % (Auto) 7 % (0-12); Neutrophils # (Auto) 7.0 Thou/mm3 (1.8-7.7); Neutrophils % (Auto) 72 % (37-80); Nucleated Red Blood Cell # 0.00 Thou/mm3 (0.00-0.00); Nucleated Red Blood Cell % 0 /100 WBC (0); Platelet Count 220 Thou/mm3 (140-440); RDW Standard Deviation 47.4 fL (36.4-46.3); Red Blood Count 4.60 Miln/mm3 (4.00-5.20); White Blood Count 9.8 Thou/mm3 (3.6-11.0)
[2025-01-31 06:52] LABS: Creatinine,Random Urine 62 mg/dL (30-125); Protein Total, Random Urine 24 mg/dL (1-14)
[2025-01-31] MEDS: LABETALOL INJ 5 MG/ML VIAL 20 ML 40 MG IVP (06:55)
[2025-01-31 06:58] LABS: Alanine Aminotransferase 18 U/L (10-49); Albumin, Serum 3.1 gm/dL (3.5-5.0); Albumin/Globulin Ratio 1.3 (1.2-2.2); Alkaline Phosphatase 163 U/L (46-116); Anion Gap 11 (7-16); Aspartate Amino Transferase 18 U/L (0-34); BUN/Creatinine Ratio 13 Ratio (12-20); Bilirubin,Total 0.2 mg/dL (0.3-1.2); Blood Urea Nitrogen < 5 mg/dL (9-23); Calcium 8.7 mg/dL (8.3-10.6); Calcium (Corrected) 9.4 mg/dL (8.5-10.1); Carbon Dioxide 18.6 mMol/L (20.0-31.0); Chloride 111 mMol/L (98-107); Creatinine (Component) 0.4 mg/dL (0.6-1.3); Estimated Creatinine Clearance 231.9 mL/min (>60); Globulin 2.4 gm/dL (2.3-3.5); Glucose 95 mg/dL (74-106); Osmolality,Calculated 278 (275-295); Potassium 3.7 mMol/L (3.4-5.1); Sodium 141 mMol/L (136-145); Total Protein 5.5 gm/dL (5.7-8.2); Uric Acid 5.9 mg/dL (3.1-7.8); eGFR > 60 See Note
[2025-01-31 07:17] LABS: Syphilis Nonreactive (Nonreactive)
[2025-01-31] MEDS: Magnesium Sulfate 4 GM Ivpb 4 GM/50 ML BAG IV (07:20)
[2025-01-31] MEDS: MAGNESIUM SULF 20 GM IVPB 20 GM/500 ML BAG IV ×2 (07:36→18:30)
[2025-01-31 07:37] LABS: Fibrinogen 441 mg/dL (175-375); INR 0.9 (0.9-1.3); Partial Thromboplastin Time 26.5 Seconds (22.0-36.0); Prothrombin Time 9.5 Seconds (9.0-12.2)
--- NOTE | 2025-01-31 08:17 | PD.LDHP ---
Documentation for date of: 01/31/25 OB Labor/Induct. HPI History of Present Illness Chief complaint: contractions : 4 Para: 2 Term pregnancies: 2 pregnancies: 0 Living children: 2 History of Abortions: Spontaneous and Elective: 1 History of Vaginal deliveries: 2 History of sections: No History of : No Date of last menstrual period: 04/26/25 KIERSTEN: 01/31/25 Gestational Age (weeks): 40 Gestational Age (days): 0 Gestational age based on last menstrual period: -12 History of present illness: Patient presents for regular, painful ctx since midnight. No LOF. No vaginal bleeding. Normal movement. No fevers/chills. No LEE/vision changes/RUQ pain. History of Present Dating criteria: based on 1st trimester US only Adequate Care: Yes Narrative: Hx of 2 prior complicated by obesity, 1hr glucola elevated with normal 3hr GTT Labs Maternal Blood Type: A Pos Labs: Positive: Rubella Titre, Negative: RPR, Hepatitis B, HIV, Chlamydia, Gonorrhea and Group Beta Strep and Unknown: Herpes Type 1, Herpes Type 2 and Covid-19 Narrative: OB panel: A+,abs-, rpr;;nr, rub NI, hbsag-,hiv-, HC-, GC/CT-, 1hr gtt: 149, 3 hr gtt wnl. AFP/NIPT/Carrier screen- Review of Systems Review of Systems Narrative Review of Systems: Review of Systems Systems Reviewed: All systems reviewed, normal except as documented Constitutional Constitutional: Denies body ache(s), Denies chills, Denies fever(s) and Denies headache(s) ENT Ears, Nose, Mouth, and Throat: Denies headache(s) and Denies vertigo Cardiovascular Cardiovascular: Denies chest pain, Denies palpitations, Denies dyspnea and Denies syncope Respiratory Respiratory: Denies cough, Denies dyspnea Gastrointestinal Gastrointestinal: Denies nausea and Denies vomiting Neurologic Neurologic: Denies convulsions, Denies headache(s), Denies other visual disturbances, Denies syncope and Denies vertigo Past Medical History Family History OTHER FAMILY HX: non-contributory Surgical History SURGICAL: Negative Section Social History SOCIAL: No tobacco/ETOH/illicit drug use Past Medical History Comments PMH COMMENT: current BMI 41.7 Meds Home Medications and Allergies Home Medications ?Medication ?Instructions ?Recorded ?Confirmed ?Type vitamins-iron fumarate 27 1 tab PO QDAY 10/15/19 01/25/25 History mg iron-folic acid 0.8 mg tablet ( Vitamin) Allergies Allergy/AdvReac Type Severity Reaction Status Date / Time No Known Allergies Allergy Verified 01/31/25 05:47 OB Exam Physical Exam Vital signs: Temp Pulse Resp BP Pulse Ox 98.6 F 90 18 136/83 H 97 01/31/25 04:45 01/31/25 08:06 01/31/25 04:45 01/31/25 08:06 01/31/25 08:16 Narrative: General: well developed, well nourished, no acute distress, conversant Cardiac: normal heart rate Lungs: breathing without distress Abdomen: soft, gravid, non-tender, no rebound or guarding Extremities: trace edema BLE Detailed Labor and Delivery Exam Dilation (cm): 3 Effacement (%): 70 Cervix position: mid station: -2 Consistency: soft Presentation: Vertex Membranes: intact monitor accelerations: 15x15 monitor decelerations: None intermediate teacher variability: Moderate (11-25) Contraction frequency (min): 7 OB Results Labs 01/31/25 05:50 01/31/25 05:50 Labs: Short CBC 01/31/25 Range/Units 05:50 WBC 9.8 (3.6-11.0) Thou/mm3 Hgb 13.2 (12.0-16.0) g/dL Hct 38.6 (36.0-46.0) % Plt Count 220 (140-440) Thou/mm3 BMP 01/31/25 05:50 Sodium 141 Potassium 3.7 Chloride 111 H Carbon Dioxide 18.6 L BUN < 5 L Creatinine 0.4 L Glucose 95 Calcium 8.7 Liver Function 01/31/25 Range/Units 05:50 Total Bilirubin 0.2 L (0.3-1.2) mg/dL AST 18 (0-34) U/L ALT 18 (10-49) U/L Alkaline Phosphatase 163 H (46-116) U/L Albumin 3.1 L (3.5-5.0) gm/dL OB Assessment & Plan Assessment and Plan (1) Pre-eclampsia, severe, third trimester: Status: Acute Assessment and plan: Skye is a 29yo with SIUP at 40wk presenting in early labor with new diagnosis of pre-eclampsia with severe features based on recurrent severe range bp's, urine p:c 0.387. IV labetalol 20mg then 40mg were given and IV MgSO4 initiated. No sx of pre-E otherwise. Hgb 13.2, plt 220. serum creat 0.4, LFTs wnl. SCE: 3/70/-2. Benign exam. Reassuring assessment. PMhx/ complicated by: -pre-eclampsia with severe features -BMI 41.7 currently, 1hr glucola elevated with normal 3hr GTT -PNC with REHANA Crockett (transfer from Dr. Coles) Plan: -Admit to L&D -Establish IV, routine labs -CEFM -Clear liquid diet -Medical Photographer/consent re: augmentation of labor, -GBS status: negative -Will initiate IV pitocin -Continue IV MgSO4 2g/hr with Mg and neuro checks per protocol (will continue until 24hr PP). IV anti-HTN med protocol prn. -Anticipate -Safe to proceed (2) 40 weeks gestation of : Status: Acute
[2025-01-31] MEDS: OXYTOCIN in NS 30 units 30 UNIT/500 ML BAG IV (08:58)
[2025-01-31 09:02] LABS: Bacteria,Urine Rare; Bilirubin,Urine Negative (Negative); Blood,Urine 1+ (Negative); Clarity,Urine Clear (Clear/Hazy); Color,Urine Lt-Yellow (Lt Yel-Yel); Glucose, Urine Negative (Negative); Ketones,Urine Negative (Negative); Leukocyte Esterase,Urine Positive (Negative); Nitrite,Urine Negative (Negative); PH,Urine 6.0 (5.0-7.0); Protein,Urine Negative (Neg - Trace); RBC,Urine 6 /hpf (0-3); Specific Gravity,Urine 1.015 (1.001-1.035); Squamous Epithelial Cell,Urine 5 /hpf (0-5); Urobilinogen,Urine Negative mg/dL (0.0-1.0); WBC,Urine 1 /hpf (0-5)
[2025-01-31 10:16] LABS: Magnesium 3.7 mg/dL (1.6-2.6)
[2025-01-31] MEDS: RINGERS LACTATED 1000 ML 1,000 ML 100 ML IV (13:00)
[2025-01-31] MEDS: LIDOCAINE HCL 1% 20 ML VIAL INFL (13:13)
[2025-01-31] MEDS: OXYTOCIN in NS 20 units 20 UNIT/1,000 ML BAG 125 UNIT IV (13:14)
[2025-01-31] MEDS: BENZO/LANO/ALOE (Dermoplast) 60 GM CAN 1 SPRAY TOP (13:22)
--- NOTE | 2025-01-31 13:49 | PD.LDDELS ---
Data ([facility]) Data Hx Section: No : 4 Term: 2 : 0 Livin Abortions: Spontaneous & Theraputic: 1 Delivery Data ([facility]) Labor Data Initiation of labor: Augmentation Induction/Augmentation Agent: Pitocin ROM date: 01/31/25 ROM time: 11:55 Amniotic membrane rupture type: Spontaneous Amniotic fluid description: Clear Delivery Data Onset of labor date: 01/30/25 Onset of labor time: 23:00 Complete dilation date: 01/31/25 Complete dilation time: 12:50 delivery date: 01/31/25 delivery time: 13:05 Placenta delivery date: 01/31/25 Placenta delivery time: 13:09 Stage 1 total time: Labor - Stage 1 Duration 13 hours and 50 minutes Delivered by: Delivery nurse: dayanara Armas nurse: hang Delinquent Tax Collector at delivery: No Support person(s) at delivery: fob Delivery Method Delivery method: Normal Vaginal Delivery Presentation: Vertex Anesthesia Type Anesthesia Type: Local Placenta Placenta delivery description: Spontaneous Cord blood sent to lab: Yes cord blood collection: Cord Blood Type Episiotomy Episiotomy description: None EBL Estimated blood loss (ml): 300 Umbilical Cord cord description: 3 Vessels Additional Procedures Skye is a 29yo [id number] s/p uncomplicated at 40wk after presenting in early labor and receiving augmentation with pitocin since she had new diagnosis of pre-eclampsia WITH severe features, delivering at 1305 on 01/31/2025. On presentation, SCE was 3vm. She progressed with pitocin augmentation to C/C/0 at which point she began pushing. She did not receive an epidural. With good maternal pushing efforts, infant's head delivered OA and restituted HEIDI. Left anterior shoulder delivered easily followed by posterior shoulder and corpus. had spontaneous cry and was vigorous. Apgars 8/9. placed on maternal abdomen where nose/mouth were suctioned and dried/stimulated. After approximately 1 minute, cord was clamped x2 and cut by FOB. Cord blood collected for typing. With fundal massage and cord traction, placenta delivered spontaneously and intact with 3 vessel centrally inserted cord. Trailing membranes teased out. Bimanual massage performed and IV pitocin given per protocol with fundus then firm at u-2cm and hemostasis noted. Manual sweep x3 performed to retrieve a few small fragments of membranes- all were removed. Bimanual massage performed and hemostasis again noted. Inspection of perineum and vagina revealed small/superficial bilateral labial lacerations which were repaired in routine fashion with 4-0 vicryl after anesthetizing with 1% lidocaine- total reapproximation and hemostasis achieved. Cytotec 800mcg MT placed for continued prophylaxis against bleeding since patient will receive IV MgSO4 for 24hr after delivery. SCDs will be re-placed. Anceph 2g IV x1 for prophylaxis after manual sweeps. All counts correct x2. Mom and infant were doing well when I left the room. Joanne Hernandez MD Complications Complications: none Data ([place]) [place] Data order: 1 [place]'s gender: Male Identification band number: [id number] weight (gms): 3555 g Weight (pounds): 7 lbs and 13.4 ozs length: 52.07 cm 1 minute: 8 5 minutes: 9
[2025-01-31] MEDS: ceFAZolin/D5W 2 GM IV 2 GM/100 ML BAG IV (13:55)
[2025-01-31] MEDS: IBUPROFEN TAB 400 MG TABLET 800 MG PO ×2 (14:00→20:09)
[2025-01-31 15:51] LABS: Magnesium 4.1 mg/dL (1.6-2.6)
[2025-01-31] MEDS: DOCUSATE SOD 100 MG CAPSULE PO (20:09)
[2025-01-31 21:55] LABS: Magnesium 3.9 mg/dL (1.6-2.6)
[2025-02-01] VITALS (13 sets, daily range): BP systolic 125–140; BP diastolic 79–91; PULSE 73–99; RESP 16–17; TEMP 36.6–37.2; O2SAT 94–100
[2025-02-01 03:45] LABS: Magnesium 4.4 mg/dL (1.6-2.6)
[2025-02-01] MEDS: MAGNESIUM SULF 20 GM IVPB 20 GM/500 ML BAG IV (05:03)
[2025-02-01] MEDS: DOCUSATE SOD 100 MG CAPSULE PO ×2 (08:03→20:19)
[2025-02-01] MEDS: IBUPROFEN TAB 400 MG TABLET 800 MG PO (08:11)
[2025-02-01 09:21] LABS: Basophils # (Auto) 0.0 Thou/mm3 (0.0-0.2); Basophils % (Auto) 0 % (0-2.5); Eosinophils # (Auto) 0.1 Thou/mm3 (0.0-0.5); Eosinophils % (Auto) 1 % (0-10); Hematocrit 34.9 % (36.0-46.0); Hemoglobin 11.7 g/dL (12.0-16.0); Immature Granulocytes Auto 0.07 Thou/mm3 (0.00-0.00); Lymphocytes # (Auto) 1.4 Thou/mm3 (1.0-4.8); Lymphocytes % (Auto) 11 % (10-50); Mean Corpuscular HGB Conc 33.5 g/dl (31.0-37.0); Mean Corpuscular Hemoglobin 28.4 pg (25.0-35.0); Mean Corpuscular Volume 85 fL (80-100); Monocytes # (Auto) 0.6 Thou/mm3 (0.0-0.8); Monocytes % (Auto) 5 % (0-12); Neutrophils # (Auto) 10.5 Thou/mm3 (1.8-7.7); Neutrophils % (Auto) 83 % (37-80); Nucleated Red Blood Cell # 0.00 Thou/mm3 (0.00-0.00); Nucleated Red Blood Cell % 0 /100 WBC (0); Platelet Count 202 Thou/mm3 (140-440); RDW Standard Deviation 49.5 fL (36.4-46.3); Red Blood Count 4.12 Miln/mm3 (4.00-5.20); White Blood Count 12.7 Thou/mm3 (3.6-11.0)
[2025-02-01 09:40] LABS: Magnesium 3.7 mg/dL (1.6-2.6)
--- NOTE | 2025-02-01 12:21 | ESPR_ITS ---
Subjective Subjective Interval history: Patient doing well overall. Minimal discomfort. Delivered yesterday at 1305 and receiving IV MgSO4 for 24hr PP. Bedrest with SCDs, nieto in place draining clear urine. Tolerating regular diet without nausea/vomiting. Lochia tapering as expected. No fevers/chills, no CP/SOB. No LEE/vision changes/RUQ pain. Exam Vital Signs Temp Pulse Resp BP Pulse Ox O2 Del Method 98.6 F 99 17 133/91 H 97 Room Air 02/01/25 08:00 02/01/25 08:00 02/01/25 08:00 02/01/25 08:00 02/01/25 08:00 02/01/25 08:00 Narrative Exam General: well developed, well nourished, no acute distress, conversant Cardiac: normal heart rate Lungs: breathing without distress Abdomen: soft, post-gravid, non-tender, no rebound or guarding, Fundus firm at u-3cm. Extremities: no pain with palpation of calves, trace edema of BLE Objective Labs 02/01/25 08:49 01/31/25 05:50 Labs: Laboratory Results - last 24 hr 01/31/25 01/31/25 02/01/25 15:09 21:20 03:16 WBC RBC Hgb Hct MCV MCH MCHC RDW Std Deviation Plt Count Neut % (Auto) Lymph % (Auto) Cascade % (Auto) Eos % (Auto) Baso % (Auto) Neut # (Auto) Lymph # (Auto) [place] # (Auto) Eos # (Auto) Baso # (Auto) Immature Gran # (Auto) Absolute Nucleated RBC Immature Gran % Nucleated RBC % Magnesium 4.1 H 3.9 H 4.4 H 02/01/25 08:49 WBC 12.7 H RBC 4.12 Hgb 11.7 L Hct 34.9 L MCV 85 MCH 28.4 MCHC 33.5 RDW Std Deviation 49.5 H Plt Count 202 Neut % (Auto) 83 H Lymph % (Auto) 11 Cascade % (Auto) 5 Eos % (Auto) 1 Baso % (Auto) 0 Neut # (Auto) 10.5 H Lymph # (Auto) 1.4 Cascade # (Auto) 0.6 Eos # (Auto) 0.1 Baso # (Auto) 0.0 Immature Gran # (Auto) 0.07 H Absolute Nucleated RBC 0.00 Immature Gran % 1 H Nucleated RBC % 0 Magnesium 3.7 H Assessment & Plan Problem List (1) care and examination immediately after delivery: Status: Acute Assessment and plan: Skye is a 29yo [id number] s/p uncomplicated at 40wk after presenting in early labor and receiving augmentation with pitocin since she had new diagnosis of pre-eclampsia WITH severe features, delivering at 1305 on 01/31/2025, doing well on PPD 1. Still receiving IV MgSO4. Normal to mild range bp's, benign exam. Hemodynamically stable with no evidence of infection. No s/sx of worsening pre- E. Appropriate change in H/H from 13.2 to 11.7. complicated by: -pre-eclampsia with severe features -BMI 41.7 currently, 1hr glucola elevated with normal 3hr GTT -PNC with REHANA Crockett (transfer from Dr. Coles) Plan: -Continue routine care -Continue IV MgSO4 until 24hr PP -Bedrest with nieto until IV MgSO4 is discontinued, then discontinue nieto and encourage ambulation -Regular diet -Anticipate discharge home tomorrow if meeting all milestones (2) Pre-eclampsia, severe, third trimester: Status: Acute (3) 40 weeks gestation of : Status: Acute Time Spent With Patient Time: Total time spent is greater than 50% in coordination of care (as documented) at patient's floor/unit and/or counseling patient:
[2025-02-01 16:04] LABS: Magnesium 3.1 mg/dL (1.6-2.6)
[2025-02-02 03:51] VITALS: BP 142/88; PULSE 71; RESP 19; TEMP 36.9; O2SAT 97
[2025-02-02] MEDS: IBUPROFEN TAB 400 MG TABLET 800 MG PO (03:58)
[2025-02-02 07:30] VITALS: BP 145/86; PULSE 88; RESP 16; TEMP 36.6; O2SAT 97
--- NOTE | 2025-02-02 08:02 | ESDS_ITS ---
DS: Providers Provider Date of admission: 01/31/25 05:43 Primary care physician: Physician No Primary/Family Admitting Provider: Joanne Hernandez MD Attending Provider on Admission: Bing Crockett CNM Consults: 01/31/25 13:31 Referral Routine Comment: Attending Provider on DC: Joanne Hernandez MD Discharging Provider: Joanne Hernandez MD DS: Diagnosis Discharge Diagnosis (1) care and examination immediately after delivery: Status: Acute (2) 40 weeks gestation of : Status: Acute (3) Pre-eclampsia, severe, third trimester: Status: Acute Problem List Completed Was Problem List Reviewed/Reconciled?: Yes Summary/Hosp Course Brief History: Skye is a 29yo [id number] s/p uncomplicated at 40wk after presenting in early labor and receiving augmentation with pitocin since she had new diagnosis of pre-eclampsia WITH severe features, delivering at 1305 on 01/31/2025, doing well on PPD 2. Received IV MgSO4 until 24hr PP. Normal to mild range bp's, benign exam. Hemodynamically stable with no evidence of infection. No s/sx of worsening pre-E. Appropriate change in H/H from 13.2 to 11.7. She has had an uncomplicated course, meeting all milestones and feels ready for discharge home. She is ambulating without lightheadedness, tolerating regular diet no n/v, spontaneously voiding without issue. She has no chest pain or shortness of breath. No fevers or chills. Minimal, appropriate discomfort. complicated by: -pre-eclampsia with severe features -BMI 41.7 currently, 1hr glucola elevated with normal 3hr GTT -PNC with REHANA Crockett (transfer from Dr. Coles) Peripartum Data Delivery Method: Normal Vaginal Delivery Episiotomy Description: None Status at Discharge Functional status at discharge: independent ambulation Overall status at discharge: patient is back to baseline Time Spent with Patient Time attestation: Total time spent providing and/or coordinating discharge services: Exam Vital Signs Temp Pulse Resp BP Pulse Ox O2 Del Method 98 F 88 16 145/86 H 97 Room Air 02/02/25 07:30 02/02/25 07:30 02/02/25 07:30 02/02/25 07:30 02/02/25 07:30 02/02/25 07:30 Narrative Exam General: well developed, well nourished, no acute distress, conversant Cardiac: normal heart rate Lungs: breathing without distress Abdomen: soft, post-gravid, non-tender, no rebound or guarding, Fundus firm at u-3cm. Extremities: no pain with palpation of calves, trace edema of BLE Discharge Plan Plan Patient Disposition: HOME (Self Care) Patient condition on transfer: Stable Prescriptions/Referrals Prescriptions/Med Rec: New docusate sodium 100 mg Capsule 100 mg PO BID 10 Days Qty: 20 0RF ibuprofen 800 mg tablet 800 mg PO Q8H PRN (Reason: See Comments) 10 Days Qty: 20 0RF No Action vit-iron fum-folic ac [ Vitamin with Minerals] 28 mg iron- 800 mcg tablet 1 tab PO QDAY Qty: 60 3RF Vitamin 27 mg iron- 0.8 mg Tablet 1 tab PO QDAY Referrals: No Primary/Family,Physician [Primary Care Provider] Patient/Caregiver Discharge Instructions Discharge Activity: activity as tolerated and other Other Discharge Activity Instructions:: follow up with REHANA Crockett in 1 week for bp check, call clinic for appointment vaginal rest and no heavy lifting more than 10 pounds for 6 weeks Other Discharge Diet Instructions: regular diet Education Materials: After a Vaginal , Understanding Preeclampsia, After Delivery [place] Concerns, Breast Care After , Incision Care After Vaginal Print Language: Ukrainian Activity Restrictions/Additional Instructions: follow up with REHANA Crockett in 1 week for bp check, call clinic for appointment Stand Alone Forms: [place] Award Info., Patient Portal Info Letter Discharge Order Discharge Orders: Discharge (Routine); Ordered 02/02/25 Ordered By: Joanne Hernandez Planned Discharge Date 02/02/25
== END 2025-02-02 10:10 | disposition home or self-care (01) | DRG 560 ==
LOC: S4SX 13:20 → S4NX 15:18
PROVIDERS: Admitting Provider Obstetrics & Gynecology; Visit Provider Advanced Practice Midwife
DX: O14.14 Severe pre-eclampsia complicating childbirth (principal); O48.0 Post-term pregnancy; Z37.0 Single live birth; Z3A.40 40 weeks gestation of pregnancy; O70.0 First degree perineal laceration during delivery
CPT/HCPCS: 36415; 59025; 59409; 80053; 81001; 82570; 83735; 84156; 84550; 85025; 85384; 85610; 85730; 86780; 86850; 86900; 86901; 94762; J0689; J2590; J3010; J3475; J3490; J7120; S0191; A9270; J1920